=== PATIENT | female | born 1935 | race American Indian/Alaskan Native ===

== ENCOUNTER 2017-04-28 08:25 | Day surgery (SDC) | payer MEDICARE ==
--- NOTE | 2017-04-28 09:56 | Short Stay Summary ---
Short Stay Documentation Date of service: 04/28/17 Narrative H&P: 82 year old presents for colonoscopy for evaluation of abdominal pain, RUQ and periumbilical, reportedly not explained by recent CT scan with and without contrast obtained at ER visit. History includes cholecystectomy. Last colonoscopy 2012. - History Principal diagnosis: abdominal pain - Allergies and Medications Current Medications: Allergies alatrofloxacin mesylate [From Trovan] Adverse Reaction (Verified 11/28/14 11:18) Unknown trovafloxacin mesylate [From Trovan] Adverse Reaction (Verified 11/28/14 11:18) Unknown Home Medications Medication Instructions Recorded Confirmed Last Taken Type Clobetasol 0.05% [Temovate] 04/28/17 04/28/17 History Diltiazem HCl [Cartia XT] 04/28/17 04/28/17 06:00 History Ezetimibe [Zetia] 04/28/17 04/25/17 History Active Medications Sodium Chloride (Nacl 0.9% 1000 Ml) 1,000 mls @ 50 mls/hr IV DIRECT JANEEN - Hospital course Hospital course: Uneventful colonoscopy. - Disposition Condition at discharge: Good Disposition: DC-01 TO HOME OR SELFCARE - Discharge Diagnoses (1) Abdominal pain Status: Chronic Qualifiers: Abdominal location: right upper quadrant Qualified Code(s): R10.11 - Right upper quadrant pain (2) Diverticulosis Status: Chronic Qualifiers: Diverticulosis site: D Diverticulosis bleeding: D (3) Angiodysplasia of cecum Status: Chronic (4) Internal hemorrhoids Status: Chronic Short Stay Discharge Plan Activity: other (no driving today) Diet: other (may resume usual diet) Additional Instructions: Follow up in our office in the event of further bothersome symptoms. Follow up with: VENUS PICHARDO MD [Primary Care Provider] - 7 Days
[2017-04-28] MEDS ORDERED: NACL 0.9% 1000 ML 1,000 ML IV SCH (10:00)
[2017-04-28] MEDS ORDERED: WATER FOR IRRIG STERILE IR ONE (10:04)
--- NOTE | 2017-04-28 10:18 | Anesthesia Consultation ---
Anesthesia Consult and Med Hx Date of service: 04/28/17 - Airway Anesthetic Teeth Evaluation: Dentures (upper), Edentulous (bottom) ROM Head & Neck: Adequate Mental/Hyoid Distance: Adequate Mallampati Class: Class III Intubation Access Assessment: Probably Good - Pulmonary Exam CTA: Yes - Cardiac Exam Cardiac Exam: RRR - Pre-Operative Health Status ASA Pre-Surgery Classification: ASA2 Proposed Anesthetic Plan: MAC - Pulmonary Hx Smoking: No Hx Asthma: No - Cardiovascular System Hx Hypertension: Yes (high cholesterol) Hx Heart Attack/AMI: No - Central Nervous System Hx Neuromuscular Disorder: Yes (arthritis) Hx Seizures: No CVA: No - Gastrointestinal Hx Gastroesophageal Reflux Disease: Yes - Endocrine Hx Renal Disease: No Hx Liver Disease: No Hx Non-Insulin Dependent Diabetes: No - Other Systems Hx Cancer: No Hx Obesity: No - Additional Comments Anesthesia Medical History Comments: NAC
--- NOTE | 2017-04-28 10:19 | Anesthesia Day of Surgery ---
Anesthesia Day of Surgery - Day of Surgery Patient Examined: Yes Patient H&P Reviewed: Yes Patient is NPO: Yes
[2017-04-28] MEDS ORDERED: DIPRIVAN 10 MG/ML IV ONE ×2 (10:23)
--- NOTE | 2017-04-28 10:54 | Operative Report ---
Operative Report Operative Report: Date of procedure: 04/28/2017 Preprocedure diagnosis: Abdominal pain Post procedure diagnosis: Angiodysplasia without bleeding, diverticulosis, internal hemorrhoids Procedure name(s): Colonoscopy Surgeon: Darrell Umanzor MD Anesthesia: Monitored anesthesia care EBL: None Procedure: The indications, techniques, potential complications and alternatives , had been discussed in full detail prior to the date of the exam, and once again on the day of the exam. Questions were encouraged and answered, and consent was thereby obtained. The patient was placed in the left lateral decubitus position, and was medicated by anesthesia services. See the anesthesia records for details. The anal sphincter was digitally dilated. The digital exam was unremarkable. The tip of a G-cluster video colonoscope was inserted through the anal sphincter and into the rectal vault. It was then advanced proximally and continuous visualization of the lumen to the cecum without difficulty. The prep was good and landmarks were identified without difficulty. A small focus of pale, nonbleeding angiodysplasia was noted in the cecum. Otherwise the cecum appeared normal, including appendiceal orifice and ileocecal valve. From the cecum, the instrument was slowly withdrawn with careful circumferential examination of the colonic mucosa. No pathology was seen in the ascending colon , hepatic flexure, transverse colon or splenic flexure. Diverticula were seen in the distal descending and sigmoid colon. The rectum appeared normal from the forward view. Retroflexion in the rectum revealed internal hemorrhoids without stigmata of bleeding. No other pathology was found. The instrument was straightened and withdrawn. The procedure was very well tolerated. Postprocedure she was monitored in the recovery area of the GI lab to ensure stability prior to her release. See the outpatient record for details regarding instructions to patient, medications and plans for follow-up. Final diagnosis: 1. Angiodysplasia, cecum, without bleeding 2. Diverticulosis coli 3. Internal hemorrhoids 4. Otherwise normal colonoscopy to the cecum, no explanation for abdominal symptoms Darrell Umanzor M.D. Dictated 04/28/2017 at 10:52 AM
--- NOTE | 2017-04-28 11:03 | Post Anesthesia Evaluation ---
- Post Anesthesia Evaluation Patient Participated: Yes Airway Patent: Yes Stable Respiratory Function: Yes Nausea/Vomiting: No Temp > 96.8F: Yes Pain Manageable: Yes Adequeate Hydration: Yes Anesthesia Complications: No Block Receding Appropriately: Not Applicable Patient on Ventilator: No
[2017-04-28 11:19] VITALS: BP 136/68
== END 2017-04-28 08:26 | disposition home or self-care (01) ==
LOC: GIO 08:25
PROVIDERS: ATTEND Internal Medicine Gastroenterology
DX: K55.20 Angiodysplasia of colon without hemorrhage (principal); K57.30 Diverticulosis of large intestine without perforation or abscess without bleeding; K64.8 Other hemorrhoids; I10 Essential (primary) hypertension; E78.00 Pure hypercholesterolemia, unspecified; M19.90 Unspecified osteoarthritis, unspecified site; K21.9 Gastro-esophageal reflux disease without esophagitis; Z88.1 Allergy status to other antibiotic agents
CPT/HCPCS: 45378; J2704; J7030